=== PATIENT | female | born 1985 | race Hispanic/Latino ===

== ENCOUNTER 2017-03-12 13:17 | Emergency (ER) | payer SELFPAY ==
[~2017-03-12 13:17] MED LIST: PER5 PO
[2017-03-12 13:21] VITALS: BP 122/89; PULSE 71; RESP 16; O2SAT 95
--- NOTE | 2017-03-12 15:59 | ED.REPORT ---
HPI-Extremity Problem Lower Date of Service March 12, 2017 ED Provider: Monster Barr PA-C Natasha is an otherwise healthy 31-year-old female presented with a chief complaint of left foot pain. She describes pain in her left heel that is aggravated by being on her feet and walk around. Pain is also aggravated by dorsiflexion of the ankle. She states the pain resolves when she lies down and rests. Pain present for approximately 3 months. She denies that the pain is worst first thing in the morning. She can recall no history of trauma or similar pain. The plans of occasional pins and needle sensation in the lateral aspect of her foot. Nursing Notes Stated Complaint: FOOT PAIN Chief Complaint: Extremity Trauma Nursing Notes Reviewed: Yes Allergies: Coded Allergies: No Known Allergies (Verified , 03/12/17) Scheduled PRN oxyCODone/APAP-Expunged, Do Not Renew! (oxyCODone/Apap 5/325mg-Expunged, Do Not Renew) Tablet 0 TAB PO Q4H PRN PRN Miscellaneous Medications ([None]) General Time Seen by MD: 15:37 Chief Complaint Leg injury left Past Medical History Past Medical History Denies Review of Systems Negative unless stated otherwise in history of present illness Physical Exam General: Well appearing, well developed, morbidly obese, no acute distress. Left Foot/ankle: DP and PT pulses present, brisk capillary refill present mild tenderness at the insertion of Achilles tendon at over Achilles tendon. Minimal swelling, negative redness, negative heat. Normal Rivera test. Negative tenderness over anterior talofibular, calcaneofibular, posterior talofibular, deltoid ligaments. Negative tenderness over fifth metatarsal or navicular. Negative tenderness over lateral and medial malleoli. Head: Atraumatic, normocephalic. Eyes: No scleral icterus or injection. No discharge. Vision grossly intact. ENT: Voice clear, hearing grossly intact. Respiratory: No respiratory distress, no increased work of breathing. Speaks in complete sentences. Skin: Warm and dry. Neurological: Grossly nonfocal. Psychological: alert and oriented. Speech appropriate, linear and logical. Behavior appropriate. Initial Vital Signs Vital Signs (First) Date Time Temp Pulse Resp B/P Pulse Ox O2 Delivery O2 Flow Rate FiO2 03/12/17 13:21 36.4 71 16 122/89 95 Room Air Initial VS: Vital signs normal Interpretation & Diagnostics PROCEDURE: X-RAY LEFT FOOT COMPLETE, MINIMUM THREE VIEWS ([id number]) INDICATIONS: foot pain IMPRESSION: Unremarkable left foot radiographs. Re-Eval/Medical Decision Med Decision/Clinical Course Obese but otherwise healthy 31-year-old female presents with chief complaint of left ankle pain. She recalls no specific trauma. She reports the pain worsens throughout the day. Physical examination reveals tenderness over the Achilles tendon and near its insertion on the calcaneus. Minimal swelling, negative redness, heat, bruising. Otherwise nontender. Circulation and sensation intact. X-rays negative for fracture. I believe this is Achilles tendinitis, and I am reassured against fracture, septic joint, plantar fasciitis. Advised rest and ice compression and elevation, [id number] analgesia, provided referral for primary care follow-up, urgency return precautions. Patient verbalizes understanding of and consented to plan. History, physical and discharge instructions are performed with the aid of on- site vice president sales Discharge & Departure Impression: Primary Impression: Achilles tendinitis of left lower extremity Disposition: Home Discharge Condition All VS Reviewed: Yes Condition: Stable Patient Instructions: Achilles Tendinitis (GEN), Achilles Tendinitis Exercises (GEN) Additional Instructions: Evaluation for left foot pain in the emergency department included history, physical examination and x-rays which are reassuring that you do not have a fracture. I believe this is most likely Achilles tendinitis, an inflammation of the tendon in the back of your leg. Treatment is largely asymptomatic, and it should resolve on its own. We will apply an Igor wrap to support the ankle. Elevate the ankle as much as possible to reduce inflammation. Ice affected area several times a day for 10- 15 minutes at a time. The pain is best treated with 800 mg of ibuprofen (Advil, Motrin) every 6 hours. You can add 1000 mg of acetaminophen (Tylenol) every 6 hours. I will give you a referral for a primary care provider. Please contact them if your symptoms are not significantly improved in 2 weeks. Return to the emergency department for new or worsening symptoms including increasing pain, redness or swelling in the ankle. La evaluacin del dolor en el pie dov en el servicio de emergencia incluy historia, examen fsico y radiografas que son tranquiliazadores de que usted no tiene garry fractura. Creo que esto es ms probable Tendonitis del tendon Sal, garry inflamacin del tendn en la parte posterior de aguilar pierna. El tratamiento es en gran parte asintomtico, y debe resolverse por s mismo. Aplicaremos un envoltorio Igor para apoyar el tobillo. Eleve el tobillo tanto yaquelin sea posible para reducir la inflamacin. ponga hielo al dylan afectada varias veces al da alice 10-15 minutos cada vez. El dolor se trata mejor con 800 mg de ibuprofeno (Advil, Motrin) cada 6 horas. Puede agregar 1000 mg de acetaminofn (Tylenol) cada 6 horas. Le ryann garry referencia para un proveedor de atencin primaria. Comunquese con ellos si viji sntomas no mejoran significativamente en 2 semanas. Vuelva al departamento de emergencias por sntomas nuevos o que empeoran, incluyendo dolor creciente, enrojecimiento o hinchazn en el tobillo. Referrals: [facility] EDSupervising Provider for APC: Meredith Jaimes MD copies to: [facility] Monster Barr PA-C March 12, 2017 15:59
--- NOTE | 2017-03-12 16:32 | DRSVH ---
PROCEDURE: X-RAY LEFT FOOT COMPLETE, MINIMUM THREE VIEWS ([id number]) INDICATIONS: foot pain TECHNIQUE: 3 views of the foot were acquired. COMPARISON: None. FINDINGS: Bones: No fractures or dislocations. No suspicious bony lesions. Bone mineralization is within nor mal limits. No significant degenerative changes of the foot are evident. Soft tissues: No tibiotalar joint effusion. The overlying soft tissues are within normal limits. IMPRESSION: Unremarkable left foot radiographs. Dictated by: Parker Badillo M.D. on 03/12/2017 at 15:29 Approved by: Parker Badillo M.D. on 03/12/2017 at 15:30
[2017-03-12 17:37] VITALS: BP 130/66; PULSE 59; RESP 14; O2SAT 98
== END 2017-03-12 17:38 | disposition home or self-care (01) ==
LOC: SED 13:17
DX: M76.62 Achilles tendinitis, left leg (principal)